=== PATIENT | female | born 1990 | race Caucasian/White ===

== ENCOUNTER → 2019-02-04 | Outpatient (CLI) | payer BC, SELFPAY ==
[2019-02-04 18:11] LABS: hCG Titer Quant., Serum 161 mIU/mL (1-3)
== END | disposition home or self-care (01) ==
LOC: LAB 16:44
PROVIDERS: Family Provider Family Medicine; PCP Family Medicine; Referring Provider Obstetrics & Gynecology; Visit Provider Obstetrics & Gynecology
DX: O02.1 Missed abortion (principal); Z3A.00 Weeks of gestation of pregnancy not specified
CPT/HCPCS: 36415; 84702

== ENCOUNTER → 2019-02-06 | Outpatient (CLI) | payer BC, SELFPAY ==
[2019-02-06 17:54] LABS: hCG Titer Quant., Serum 72 mIU/mL (1-3)
== END | disposition home or self-care (01) ==
LOC: LAB 16:42
PROVIDERS: Family Provider Family Medicine; PCP Family Medicine; Referring Provider Obstetrics & Gynecology; Visit Provider Obstetrics & Gynecology
DX: O02.1 Missed abortion (principal); Z3A.00 Weeks of gestation of pregnancy not specified
CPT/HCPCS: 36415; 84702

== ENCOUNTER → 2019-03-24 | Outpatient (CLI) | payer BC, SELFPAY | END | disposition home or self-care (01) | LOC: LAB 14:56 | PROVIDERS: Family Provider Family Medicine; PCP Family Medicine; Referring Provider Obstetrics & Gynecology; Visit Provider Obstetrics & Gynecology | DX: O20.0 Threatened abortion (principal); Z3A.00 Weeks of gestation of pregnancy not specified | CPT/HCPCS: 36415; 84702 ==

== ENCOUNTER → 2019-03-26 | Outpatient (CLI) | payer BC, SELFPAY ==
[2019-03-26 13:59] VITALS: BMI 24.7
[2019-03-26 15:50] LABS: hCG Titer Quant., Serum 48908 mIU/mL (1-3)
== END | disposition home or self-care (01) ==
LOC: LAB 14:37
PROVIDERS: Family Provider Family Medicine; PCP Family Medicine; Referring Provider Obstetrics & Gynecology; Visit Provider Obstetrics & Gynecology
DX: O20.0 Threatened abortion (principal); N89.8 Other specified noninflammatory disorders of vagina; Z3A.00 Weeks of gestation of pregnancy not specified
CPT/HCPCS: 36415; 84702; 87070; 87205

== ENCOUNTER → 2019-04-02 | Outpatient (CLI) | payer BC, SELFPAY ==
[2019-03-26 13:59] VITALS: BMI 24.7
--- NOTE | 2019-04-02 16:02 | US_ITS ---
STUDY: FIRST TRIMESTER OBSTETRICAL ULTRASOUND REASON FOR EXAM: Female, 28 years old. Viability LMP: TECHNIQUE: Transvaginal TECHNICAL QUALITY: Adequate. PRIOR ULTRASOUND: None. FINDINGS: There is visualization of a single gestational sac in a normal intrauterine position. The gestational sac shape is within normal limits. There is a visualized yolk sac. The yolk sac measures 3.8 mm. The placenta is non-visualized. There is visualization of a live embryo. The crown-rump length (CRL) measures 1.35 cm, indicating an estimated gestational age (EGA) of 7 weeks, 5 days. There is demonstrated cardiac activity with a heart rate of 160 bpm. The estimated gestation age (EGA) by US is 8 weeks, 3 days. The estimated date of delivery (JOSE MANUEL) by US is 11/09/2019. The uterus is retroverted and measures 7.6 x 6.9 x 5.7 cm. There is no demonstrated uterine fibroid. The cervix is partially open and contains fluid. The right ovary measures 3.4 x 1.8 x 1.6 cm. There is no right ovarian cyst. There is no visualized right adnexal mass or complex lesion. The left ovary measures 2.9 x 2.6 x 2.2 cm. There is no left ovarian cyst. There is no visualized left adnexal mass or complex lesion. Free fluid is noted near the left ovary. US/OB Limited With Biometrics IMPRESSION: Intrauterine gestation with sonographic age of 8 weeks 3 days. Cervix is partially open and contains fluid. Positive cardiac activity. Free fluid near the left ovary. Continued ultrasound follow-up is needed. Electronically Signed: Mathew Nelson MD at 17:28 EDT Tel , Service support ,
== END | disposition home or self-care (01) ==
LOC: US 16:01
PROVIDERS: Family Provider Family Medicine; PCP Family Medicine; Referring Provider Obstetrics & Gynecology; Visit Provider Obstetrics & Gynecology
DX: O20.0 Threatened abortion (principal); Z3A.00 Weeks of gestation of pregnancy not specified
CPT/HCPCS: 76816

== ENCOUNTER → 2019-04-02 | Outpatient (CLI) | payer BC, SELFPAY ==
[2019-03-26 13:59] VITALS: BMI 24.7
== END | disposition home or self-care (01) ==
LOC: LAB 13:34
PROVIDERS: Family Provider Family Medicine; PCP Family Medicine; Referring Provider Obstetrics & Gynecology; Visit Provider Obstetrics & Gynecology
DX: O20.0 Threatened abortion (principal); Z3A.00 Weeks of gestation of pregnancy not specified
CPT/HCPCS: 36415; 84702; 86850; 86900

== ENCOUNTER → 2019-04-25 | Outpatient (CLI) | payer BC, SELFPAY ==
[2019-04-25 10:00] VITALS: BMI 25.2
[2019-04-25 11:21] LABS: Absolute Lymphocyte Count 1.55 X10^3/uL (0.83-4.51); Absolute Neutrophil Count 3.1 X10^3/uL (2.0-7.7); Basophil# 0.02 X10^3/uL; Basophil% 0.4 % (0-1); Eosinophil# 0.07 X10^3/uL; Eosinophils% 1.4 % (0-5); Hematocrit 36.3 % (37-47); Hemoglobin 12.3 g/dL (12.0-15.0); Lymphocyte # 1.55 X10^3/ul (4.0); Mean Corp Hgb Conc 33.9 g/dL (32-36); Mean Corpuscular Hgb 30.8 pg (27.0-32.0); Mean Platelet Vol. 10.8 fl (6.2-12.0); Monocyte# 0.38 X10^3/uL; Monocyte% 7.4 % (0-10); NRBC Flagged by Analyzer 0 % (0-5); Neutrophil # 3.13 X10^3/uL (2.7-7.7); Neutrophil % 60.6 % (47-70); Platelet Count 185 K/mm3 (150-450); RBC Distribution Width SD 36.4 fl (35.1-43.9); Red Blood Count 3.99 M/mm3 (4.2-5.4); White Blood Count 5.2 K/mm3 (4.4-11.0)
[2019-04-25 12:42] LABS: HIV - WCH Non-Reactive (Nonreactive); Rubella IgG 40.5 IU/mL
[2019-05-02 01:38] LABS: Rapid Plasmin Reagin (RPR) NONREACTIVE (NONREACTIVE)
== END | disposition home or self-care (01) ==
LOC: LAB 10:54
PROVIDERS: Family Provider Family Medicine; PCP Family Medicine; Referring Provider Obstetrics & Gynecology; Visit Provider Obstetrics & Gynecology
DX: Z34.81 Encounter for supervision of other normal pregnancy, first trimester (principal); O09.90 Supervision of high risk pregnancy, unspecified, unspecified trimester; Z3A.00 Weeks of gestation of pregnancy not specified
CPT/HCPCS: 36415; 85025; 86592; 86703; 86762; 86850; 86900; 86901

== ENCOUNTER → 2019-05-07 | Outpatient (CLI) | payer BC, SELFPAY ==
[2019-05-07 16:03] VITALS: BMI 24.7
[2019-05-07 21:25] LABS: Chlamydia Trachomatis by PCR POSITIVE (Negative); Neisserai gonorrhoeae by PCR Negative (Negative); Probe Check PASS
[2019-05-14 12:35] LABS: HPV Reflexed? NOT INDICATED
== END | disposition home or self-care (01) ==
PROVIDERS: Family Provider Family Medicine; PCP Family Medicine; Referring Provider Obstetrics & Gynecology; Visit Provider Obstetrics & Gynecology
DX: Z34.91 Encounter for supervision of normal pregnancy, unspecified, first trimester (principal); Z12.4 Encounter for screening for malignant neoplasm of cervix; Z3A.12 12 weeks gestation of pregnancy
CPT/HCPCS: 87086; 87491; 87591; 87624; 88175; G0145

== ENCOUNTER → 2019-06-02 17:28 | Outpatient (CLI) | payer BC, SELFPAY ==
[2019-06-02 16:10] VITALS: BMI 26.9
[2019-06-02 21:11] LABS: Chlamydia Trachomatis by PCR Negative (Negative); Neisserai gonorrhoeae by PCR Negative (Negative); Probe Check PASS; Sample Adequacy Control PASS; Specimen Processing Control PASS
[2019-06-04 12:14] LABS: HSV 1 IgG 5.81 index (0.00-0.90); HSV 2 IgG < 0.91 index (0.00-0.90)
== END ==
PROVIDERS: Family Provider Family Medicine; PCP Family Medicine; Referring Provider Obstetrics & Gynecology; Visit Provider Obstetrics & Gynecology
DX: O98.819 Other maternal infectious and parasitic diseases complicating pregnancy, unspecified trimester (principal); A74.9 Chlamydial infection, unspecified; Z11.3 Encounter for screening for infections with a predominantly sexual mode of transmission; Z3A.00 Weeks of gestation of pregnancy not specified
CPT/HCPCS: 36415; 86695; 86696; 87491; 87591

== ENCOUNTER → 2019-08-25 14:35 | Outpatient (CLI) | payer BC, SELFPAY ==
[2019-08-25 14:18] VITALS: BMI 24.7
[2019-08-25 15:31] LABS: Absolute Lymphocyte Count 1.71 X10^3/uL (0.83-4.51); Absolute Neutrophil Count 6.4 X10^3/uL (2.0-7.7); Basophil# 0.02 X10^3/uL; Basophil% 0.2 % (0-1); Eosinophil# 0.12 X10^3/uL; Eosinophils% 1.4 % (0-5); Hematocrit 35.3 % (37-47); Hemoglobin 11.8 g/dL (12.0-15.0); Lymphocyte # 1.71 X10^3/ul (4.0); Lymphocyte % 19.5 % (19-41); Mean Corp Hgb Conc 33.4 g/dL (32-36); Mean Corpuscular Hgb 31.6 pg (27.0-32.0); Mean Corpuscular Volume 94.6 fL (81-99); Mean Platelet Vol. 10.2 fl (6.2-12.0); Monocyte# 0.48 X10^3/uL; Monocyte% 5.5 % (0-10); NRBC Flagged by Analyzer 0 % (0-5); Neutrophil # 6.39 X10^3/uL (2.7-7.7); Neutrophil % 73.1 % (47-70); Platelet Count 177 K/mm3 (150-450); RBC Distribution Width SD 41.8 fl (35.1-43.9); Red Blood Count 3.73 M/mm3 (4.2-5.4); White Blood Count 8.8 K/mm3 (4.4-11.0)
[2019-08-25 15:42] LABS: Glucose Challenge Gest 1H 50g 131 mg/dL (70-140)
== END ==
PROVIDERS: Family Provider Family Medicine; PCP Family Medicine; Referring Provider Obstetrics & Gynecology; Visit Provider Obstetrics & Gynecology
DX: Z34.92 Encounter for supervision of normal pregnancy, unspecified, second trimester (principal); Z3A.28 28 weeks gestation of pregnancy
CPT/HCPCS: 36415; 82950; 85025

== ENCOUNTER → 2019-10-21 13:50 | Outpatient (CLI) | payer BC, SELFPAY ==
[2019-10-21 13:21] VITALS: BMI 33.0
[2019-10-21 19:47] LABS: Chlamydia Trachomatis by PCR Negative (Negative); Neisserai gonorrhoeae by PCR Negative (Negative); Probe Check PASS; Sample Adequacy Control PASS; Specimen Processing Control PASS
[2019-10-22 09:39] LABS: Hepatitis B Surface Antigen Non-Reactive (Nonreactive); Hepatitis C Antibody Non-Reactive (Nonreactive)
== END ==
PROVIDERS: PCP Family Medicine; Referring Provider Obstetrics & Gynecology; Visit Provider Obstetrics & Gynecology
DX: O98.819 Other maternal infectious and parasitic diseases complicating pregnancy, unspecified trimester (principal); A74.9 Chlamydial infection, unspecified; O09.90 Supervision of high risk pregnancy, unspecified, unspecified trimester; Z3A.00 Weeks of gestation of pregnancy not specified
CPT/HCPCS: 36415; 86803; 87081; 87340; 87491; 87591

== ENCOUNTER 2019-11-10 19:40 | Inpatient (IN) | payer BC, SELFPAY ==
[2019-11-07 13:18] VITALS: BMI 33.0
[2019-11-10 18:35] VITALS: BMI 35.0
[2019-11-10 19:11] VITALS: BP 101/57; PULSE 98
[2019-11-10 19:20] LABS: ROM Internal Control Test YES-OK TO RESULT pt. (Internal QC)
[2019-11-10 19:22] LABS: ROM Patient Test POSITIVE (Negative)
[2019-11-10 20:06] VITALS: BP 109/71; PULSE 96
[2019-11-10 20:07] VITALS: TEMP 98.6; O2SAT 98
--- NOTE | 2019-11-10 20:12 | PCM.HP.OB ---
- Problem List (1) SROM (spontaneous rupture of membranes) Status: Acute (2) Chlamydia infection affecting Status: Acute Comment: treated 05/08/19, ALLIE negative, repeat at 36 weeks (3) Supervision of high risk , antepartum Status: Acute Comment: PRR JOSE MANUEL 11/13/18 female [facility] Philipp Desmond (4) Status: Acute Qualifiers: Comment: genetic-low risk. declines carrier and afp screening. normal anatomy History Date of Admission: 11/10/19 Final JOSE MANUEL: 11/14/19 Gestational age: 39 Weeks and 3 Days History of this : This is a 29 year-old, at 39 weeks gestational age presents with PROM 1 cm and clear LOF since this evening. she has some contractions but denies vb admits good fm. Surgical History: Surgical History (Last Reviewed 10/30/19 @ 13:26 by Dipika Conklin) Hx of LASIK Z98.890 Allergies amoxicillin Adverse Reaction (Intermediate, Verified 11/10/19 19:31) rash Home Medications: Home Medications prenat.vits,carissa,[id number] 1 tab PO DAILY 03/26/19 Smoking Status: Never smoker Alcohol: None Number of Fetus(es): 1 NST - FHR Rate Baby A Baseline: 130 Variability:: Moderate Accelerations:: 15 x 15 Decelerations:: None NST Reactive:: Yes FHR Category:: Category I Uterine Activity:: no regular History Past Pregnancies: Past Pregnancies Pregancy History 4 Elective abortions Hx Para 1 Spontaneous abortions 2 Hx # Term Pregnancies 1 Ectopic pregnancies Hx # Pregnancies Multiple births # of living children 1 Past Pregnancies Del. Date Name GA/Weeks Outcome Route Bth Weight Gen Labor Lgth Anesthesia Del Locatn Provider FOB 09/10/17 Philipp 40 live - full term 8 lbs. 15.7 oz. Male epidural [place] [facility]: Mom's Labs & Results 11/10/19 18:50 Vag Amniotic Fld Detect POSITIVE H Social History Smoking Status Never smoker Expected Infant Delivery Method: Spontaneous Vaginal Review of Systems Constitutional: Denies: Fever, Malaise Eyes: Denies: Blurred vision, Vision Change HEENT: Denies: Head Aches, Visual Changes Cardiovascular: Denies: Chest Pain, Palpitations Respiratory: Denies: Cough, Shortness of Breath, Wheezing Gastrointestinal: Denies: Abdominal Pain, Diarrhea, Nausea, Vomiting Genitourinary: Denies: Dysuria, Hematuria Musculoskeletal: Denies: Joint Pain, Muscle pain Skin: Denies: Lesions, Rash Neurological: Denies: Blurred vision, Focal weakness, Headaches Psychiatric: Denies: Anxiety, Depression Endocrine: Denies: Heat/ Cold Intolerance Hematologic/ Lymphatic: Denies: Easy Bruising, Easy Bleeding Physical Exam General: Alert, Cooperative, No apparent distress HEENT: Atraumatic, Normocephalic. Negative for: Thyromegaly, Lymphadenopathy Cardiovascular: Regular rate Lungs: Normal air movement Abdomen: Soft, Non Tender, Gravid Neurological: Deep Tendon Reflexes 2+/4 and Symmetrical, Neuro grossly intact. Negative for: Clonus [employer]: Normal external genitalia. Negative for: Vulvar lesions Estimated gestational size: Appropriate for gestational size Presentation: Cephalic Cervix Dilation (cm): 1 Assessment/Plan All Active Problems (Last Reviewed 11/07/19 @ 13:18 by Dipika Conklin) SROM (spontaneous rupture of membranes) (Acute) Chlamydia infection affecting (Acute) Supervision of high risk , antepartum (Acute) (Acute) Vaginal bleeding during (Resolved) This is a 29 year-old, at 39 weeks gestational age presents with PROM Patient presents IOL, plan management for , pitocin for PROM with no regular ctx Pain management: plans epidural. GBS negative. Management of any complications: none I have reviewed the [facility] and made any clinically relevant updates.
[2019-11-10] MEDS: Lactated Ringers 1,000 ML 50 ML IV (20:25)
[2019-11-10 20:50] LABS: Absolute Neutrophil Count 5.4 X10^3/uL (2.0-7.7); Basophil# 0.02 X10^3/uL; Basophil% 0.2 % (0-1); Eosinophils% 2.4 % (0-5); Hemoglobin 12.2 g/dL (12.0-15.0); Lymphocyte % 23.7 % (19-41); Mean Corp Hgb Conc 33.9 g/dL (32-36); Mean Corpuscular Hgb 32.3 pg (27.0-32.0); Mean Corpuscular Volume 95.2 fL (81-99); Mean Platelet Vol. 10.8 fl (6.2-12.0); Monocyte% 9.5 % (0-10); NRBC Flagged by Analyzer 0 % (0-5); Neutrophil # 5.36 X10^3/uL (2.7-7.7); Neutrophil % 63.5 % (47-70); Platelet Count 171 K/mm3 (150-450); RBC Distribution Width SD 44.7 fl (35.1-43.9); Red Blood Count 3.78 M/mm3 (4.2-5.4); White Blood Count 8.4 K/mm3 (4.4-11.0)
[2019-11-10] MEDS: Oxytocin 30 units/NS 500 ml 30 UNITS/500 ML IV.SOLN IV (21:24)
[2019-11-10 21:31] VITALS: BP 112/66; PULSE 93; O2SAT 97
[2019-11-10 22:29] VITALS: BP 111/68; PULSE 99
[2019-11-10 23:21] VITALS: BP 130/86; PULSE 79; TEMP 98.7; O2SAT 98
[2019-11-11] VITALS (43 sets, daily range): BP systolic 90–130; BP diastolic 48–80; PULSE 71–223; RESP 14–16; TEMP 36.6–37.2; O2SAT 79–100
[2019-11-11] MEDS: Lactated Ringers 500 ML 999 ML IV (01:04)
[2019-11-11] MEDS: fentaNYL-bupivacaine (epidural) 100 ML BAG EPIDURAL (01:29)
[2019-11-11] MEDS: Oxytocin 30 units/NS 500 ml 30 UNITS/500 ML IV.SOLN 334 UNITS IV (05:07)
--- NOTE | 2019-11-11 05:15 | OP.PCM_ITS ---
Problem List (1) SROM (spontaneous rupture of membranes) Status: Acute (2) Chlamydia infection affecting Status: Acute Comment: treated 05/08/19, ALLIE negative, repeat at 36 weeks (3) Supervision of high risk , antepartum Status: Acute Comment: PRR JOSE MANUEL 11/13/18 female [facility] Philipp Desmond (4) Status: Acute Qualifiers: Comment: genetic-low risk. declines carrier and afp screening. normal anatomy Vaginal Delivery Maternal Presentation: Active Labor ial Amniotic Membrane Rupture Type: Spontaneous Amniotic Fluid Description: Clear Final JOSE MANUEL: 11/14/19 Gestational age: 39 Weeks and 4 Days Date of Procedure: 11/11/19 Pre-Operative Diagnosis: ial Post-Operative Diagnosis: same Surgery/ Procedure Performed: Spontaneous Vaginal Delivery Type of Anesthesia: Epidural Description of Procedure: Patient began pushing and delivered the head in the DRAKE presentation. The head was delivered atraumatically and a loose nuchal cord ?2 was identified and easily reduced over the 's head. The anterior and posterior shoulders delivered without complication followed by the rest of the infant and the infant was placed on the maternal abdomen. Delayed cord clamping was employed for appr oximately 60 seconds. Cord was clamped and cut and gentle traction was applied to the cord and the placenta delivered spontaneously immediately following it was noted to be intact with three-vessel cord. The perineum and vagina were inspected and noted to have no laceration. EBL was 200 cc. Patient and infant tolerated delivery well. Presentation: DRAKE Placental Delivery Description: Spontaneous Placenta Disposition: [facility] Cord Vessel Description: 3 Vessels Cord Entanglement: Around neck x 2, loose Drain: Hines to straight drain Estimated Blood Loss: 200 A gender: Female (1 minute): 7 (5 minute): 9 Episiotomy Description: None Laceration: None Medications given after delivery: IV Pitocin Complications: None Multi Select Codes - Urinary/Genital Urinary/Genital CPT Codes: 05865 Vaginal Delivery [facility]
[2019-11-11] MEDS: Naproxen 250 MG Tablet 500 MG PO ×2 (07:59→15:54)
[2019-11-11] MEDS: Acetaminophen 500 MG Tablet 1000 MG PO ×2 (12:39→20:24)
[2019-11-12] MEDS: Naproxen 250 MG Tablet 500 MG PO (00:24)
[2019-11-12 04:47] VITALS: BP 103/65; PULSE 84; RESP 16; TEMP 36.8
[2019-11-12 08:00] VITALS: BP 112/76; PULSE 87; RESP 18; TEMP 37.1; O2SAT 97
--- NOTE | 2019-11-12 08:12 | PCM.PN.OB ---
Patient Problems: Active and Suspected Problems (Last Reviewed 11/07/19 @ 13:18 by Dipika Conklin) SROM (spontaneous rupture of membranes) (Acute) Subjective: Doing well, no complaints.Pain controlled. Denies CP, SOB, N,V. Ambulating well, tolerating po. Lochia moderate, with some difficulty - Physical Exam Vitals/I&O's: Vital Signs Temp Pulse Resp BP Pulse Ox 98.3 F 84 16 103/65 100 11/12/19 04:47 11/12/19 04:47 11/12/19 04:47 11/12/19 04:47 11/11/19 08:05 Oxygen Delivery Method Room Air Weight: 204 lb Body Mass Index (BMI) 35.0 Intake and Output for Last 24 Hours 11/10/19 11/11/19 11/12/19 23:59 23:59 23:59 Intake Total 5.00 / 5.00 1434.35 / 1434.35 Output Total 900 / 900 200 / 200 Balance -895.00 / -895.00 1234.35 / 1234.35 General: Alert, Oriented x3 Abdomen: Soft, Non Tender, - - FF below U Current Medications Acetaminophen (Tylenol) 1,000 mg PO Q8H PRN PRN PRN Reason: Pain Score 1-3/10 Last Admin: 11/11/19 20:24 Dose: 1,000 mg Documented by: Bisacodyl (Dulcolax) 10 mg RECTAL UD PRN PRN Reason: If no BM Dibucaine (Dibucaine) 1 applic TOPICAL TID PRN PRN; Protocol PRN Reason: Discomfort Hydrocortisone (Hytone) 1 applic TOPICAL TID PRN PRN; Protocol PRN Reason: Discomfort Ketorolac Tromethamine (Toradol) 10 mg PO Q6H PRN PRN PRN Reason: Pain Score 1-3/10 Stop: 11/16/19 05:52 Methylergonovine Maleate (Methergine) 0.2 mg IM X1 PRN PRN Reason: Excess bleeding/uterine atony Naproxen (Naprosyn) 500 mg PO Q8H PRN PRN PRN Reason: Pain Score 1-3/10 Last Admin: 11/12/19 00:24 Dose: 500 mg Documented by: Ondansetron HCl (Zofran) 4 mg IV Q4H PRN PRN PRN Reason: Nausea Oxycodone HCl (Oxyir) 5 - 10 mg PO Q4H PRN PRN PRN Reason: Pain Score 4-10/10 Senna/Docusate Sodium (Senokot-S, Ines-Colace) 1 - 2 tablet PO DAILY PRN PRN PRN Reason: Constipation Simethicone (Mylicon) 80 mg PO PCHS PRN PRN Reason: Indigestion/Stomach pain Sodium Chloride () 5 - 15 ml IV UD PRN PRN Reason: SALINE FLUSH Medical Necessity - Tobacco Use Smoking Status: Never smoker Assessment/Plan All Active Problems (Last Reviewed 11/07/19 @ 13:18 by Dipika Conklin) SROM (spontaneous rupture of membranes) (Acute) Chlamydia infection affecting (Acute) Supervision of high risk , antepartum (Acute) (Acute) Vaginal bleeding during (Resolved) s/p PPD # 1 1. routine post delivery care 2. breast feeding- support given 3. rh positive 4. rubella immune 5. home today
[2019-11-12 08:14] VITALS: BP 106/70; PULSE 84; RESP 18; TEMP 36.7; O2SAT 97
--- NOTE | 2019-11-12 08:14 | DCINST_ITS ---
Additional Instructions: If you experience any of the following, contact your healthcare provider. * Bleeding that soaks a pad every hour for 2 hours * Fever 100.4 or higher * Unrelieved incision or abdominal pain * Swelling, redness, discharge or bleeding from your incision or episiotomy site * Your incision begins to separate * Problems urinating (including inability to urinate or burning while urinating). * Visual changes * Severe headache * Flu-like symptoms * Pain or redness in one of both of your breasts * Pain, warmth, tenderness or swelling in your legs, especially the calf area * Frequent nausea and vomiting * Symptoms of depression or anxiety If you experience any of the following, call 911 or go to the nearest Emergency Room. * Chest pain * Problems breathing * Seizure activity * Partial or complete paralysis of a body part, slurred speech, weakness or drooping of the face, or a sudden inability to walk or hold your balance Allergies/Adverse Reactions: Allergies amoxicillin Adverse Reaction (Intermediate, Verified 11/10/19 19:31) rash Medications to take at Discharge prenat.vits,carissa,[id number] 1 tab PO DAILY 03/26/19 Primary Care Physician: Fredy Gutiérrez MD [Primary Care Provider] - Test Results: Test results from this visit will be discussed in further detail at your follow- up appointment, if applicable.
--- NOTE | 2019-11-12 08:14 | PCM.DCVAG ---
Additional Instructions: If you experience any of the following, contact your healthcare provider. Bleeding that soaks a pad every hour for 2 hours Fever 100.4 or higher Unrelieved incision or abdominal pain Swelling, redness, discharge or bleeding from your incision or episiotomy site Your incision begins to separate Problems urinating (including inability to urinate or burning while urinating). Visual changes Severe headache Flu-like symptoms Pain or redness in one of both of your breasts Pain, warmth, tenderness or swelling in your legs, especially the calf area Frequent nausea and vomiting Symptoms of depression or anxiety If you experience any of the following, call 911 or go to the nearest Emergency Room. Chest pain Problems breathing Seizure activity Partial or complete paralysis of a body part, slurred speech, weakness or drooping of the face, or a sudden inability to walk or hold your balance Allergies/Adverse Reactions: Allergies amoxicillin Adverse Reaction (Intermediate, Verified 11/10/19 19:31) rash Medications to take at Discharge prenat.vits,carissa,[id number] 1 tab PO DAILY 03/26/19 Primary Care Physician: Fredy Gutiérrez MD [Primary Care Provider] - Test Results: Test results from this visit will be discussed in further detail at your follow-up appointment, if applicable.
== END 2019-11-12 13:40 | disposition home or self-care (01) | DRG 807 ==
LOC: WPOUT 19:48 → WP 19:48
PROVIDERS: Admitting Provider Obstetrics & Gynecology; PCP Family Medicine; Visit Provider Obstetrics & Gynecology
DX: O69.81X0 Labor and delivery complicated by cord around neck, without compression, not applicable or unspecified (principal); Z37.0 Single live birth; Z3A.39 39 weeks gestation of pregnancy; Z87.42 Personal history of other diseases of the female genital tract
CPT/HCPCS: 59025; 59050; 84112; 85025; 86850; 86900; 86901; 99218; J7120; G0378